=== PATIENT | female | born 1935 | race Caucasian/White ===

== ENCOUNTER 2017-01-27 04:21 | Inpatient (IN) | payer MEDICARE, BC ==
[2017-01-21 11:37] LABS: BASOPHILS 0.7 %; BASOPHILS ABSOLUTE 0.04 10/3/uL (0.0-0.16); EOSINOPHILS 5.7 %; EOSINOPHILS ABSOLUTE 0.31 10/3/uL (0.0-0.53); HEMATOCRIT 35.9 % (36.0-48.0); HEMOGLOBIN 11.4 g/dL (12.0-16.0); IMMATURE GRANULOCYTES 0.2 %; IMMATURE GRANULOCYTES ABSOLUTE 0.01 10/3/uL (0.0-0.11); LYMPHOCYTES 27.5 %; LYMPHOCYTES ABSOLUTE 1.49 10/3/uL (0.67-4.30); MEAN CORPUS HGB CONC 31.8 g/dL (32.0-36.0); MEAN CORPUSCULAR HEMOGLOB 27.9 pg (26.0-34.0); MEAN PLATELET VOLUME 11.1 fL (9.2-13.0); MONOCYTES ABSOLUTE 0.38 10/3/uL (0.21-1.20); NEUTROPHILS 58.9 %; NEUTROPHILS ABSOLUTE 3.18 10/3/uL (2.02-8.40); RBC DISTRIBUTION WIDTH 15.4 % (12.0-16.0); RED CELL COUNT 4.08 10/6/uL (4.0-5.6); WHITE BLOOD CELLS 5.4 10/3/uL (4.5-10.5)
[2017-01-21 11:43] LABS: INTERNATIONAL NORMAL RATI 1.3 UNITS (-); PROTIME (NOT ORD) 15.7 SEC (12.0-14.5)
[2017-01-21 11:44] LABS: PLATELET COUNT 314 10/3/uL (150-400)
[2017-01-21 11:45] LABS: MANUAL DIFF NO %
[2017-01-21 11:57] LABS: A/G RATIO 0.9 (0.7-1.9); ALBUMIN 3.4 G/DL (3.5-5.0); CHLORIDE, SERUM 109 MMOL/L (96-112); CO2 (CARBON DIOXIDE) 23 MMOL/L (24-34); CREATININE 1.23 MG/DL (0.55-1.02); GFR AFRICAN AMERICAN 47 ML/MIN (>=60); GFR NON AFRICAN AMERICAN 41 ML/MIN (>=60); GLOBULIN 3.7 G/DL (2.5-4.1); SGOT(AST) 30 U/L (5-40); SGPT(ALT) 42 U/L (5-65); SODIUM, SERUM 142 MMOL/L (135-148); TOTAL BILIRUBIN 0.6 MG/DL (0-1.2); TOTAL PROTEIN 7.1 G/DL (6.0-8.5)
[2017-01-21 11:58] LABS: ALKALINE PHOSPHATASE 72 U/L (45-117); BUN (BLOOD UREA NITROGEN) 20 MG/DL (6-23); GLUCOSE, SERUM 63 MG/DL (60-99); POTASSIUM, SERUM 5.1 MMOL/L (3.5-5.3)
[2017-01-21 11:59] LABS: ASCORBIC ACID (UR NOT ORDER) NEG (NEG); BILIRUBIN, URINE NEGATIVE (NEG); KETONE, URINE NEGATIVE (NEG); WBC (NOT ORDERED) (RFLEX) 7 (0-5)
[2017-01-21 11:59] LABS: B NATRIURETIC PEPTIDE (BNP) 4288.7 PG/ML (< 100.0)
[2017-01-21 12:00] LABS: LEUKOCYTE ESTERASE(NOT OR TRACE (NEG)
[2017-01-21 21:54] LABS: GLYCOHEMOGLOBIN (HbA1c) 6.2 % (4.7-6.1)
--- NOTE | ~2017-01-27 | CN ---
Consultation Report [facility] [address] [place]. [address] NAME: HIGINIO REYNOLDS : 34 STATUS : ADM IN PAT#: [id number] AGE: 81 ADM/REG DATE : 01/27/17 MR#: [id number] REPORT SERV DATE: 01/27/17 DICTATED BY: EMILY MITCHELL DATE: 01/27/17 REPORT STATUS : Draft TRANSCRIBED BY: MODL DATE: 01/27/17 NEPHROLOGY CONSULT DATE OF CONSULTATION: 01/27/2017 REASON FOR CONSULT: Chronic kidney disease, status post TAVR. HISTORY OF PRESENT ILLNESS: Ms Reynolds is an 81-year-old white female with a history of severe aortic stenosis. She has chronic kidney disease, but has not previously been seen by Nephrology. Her baseline creatinine appears to be 1.1 to 1.3 dating back to 07/2016. In 12/2016, she underwent cardiac catheterization, which showed nonobstructive coronary artery disease with PASP of 47 mmHg. She had an MRI on 01/01/2017, which showed a left frontal lobe area of ischemia and also underwent CT angiogram of the abdomen and chest, which showed calcification of her aorta. Echocardiogram last month showed EF 30% with diastolic dysfunction and an aortic valve area of 0.4 sq cm. She is postop day 0 TAVR and is extubated in the CVICU. Family is not in the room at the time of my interview and she is a very poor historian. PAST MEDICAL HISTORY: 1. Chronic kidney disease, baseline creatinine 1.1 to 1.3 since July 2016. 2. Severe aortic stenosis, postop day 0 TAVR, EF 30% diastolic dysfunction. 3. 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 4. Hypertension. 5. Hyperlipidemia. 6. History of right hip replacement. 7. Atherosclerotic cardiovascular disease with history of PCI. HOME MEDICATIONS: Albuterol nebulizers, amlodipine 10 mg daily, aspirin, Bumex 0.5 mg daily, Zyrtec 10 mg daily, Prozac 20 mg daily, Lortab p.r.n., Lantus 18 units at bedtime, lactulose p.r.n., Lopressor 12.5 mg b.i.d., multivitamin daily, dystrophin 5 mg b.i.d., Pravachol, potassium, vitamin D. FAMILY HISTORY: Cannot be obtained in the patient's current condition postop. SOCIAL HISTORY: Cannot be obtained in the patient's current condition postop. REVIEW OF SYSTEMS: Cannot be obtained in the patient's current condition postop. PHYSICAL EXAMINATION: VITAL SIGNS: Temperature 97.7, pulse 77, respirations 21, blood pressure 114/57, 97% O2 saturation on 14 L of high-flow nasal oxygen. Today 950 mL of intake with 1678 mL of urine output. GENERAL: She is an elderly white female, who is in no distress. She is lying flat in her Consultation Report [place] [id number] [facility] [place]. [address] NAME: HIGINIO REYNOLDS : 34 STATUS : ADM IN [facility]#: [id number] AGE: 81 ADM/REG DATE : 01/27/17 MR#: [id number] REPORT SERV DATE: 01/27/17 DICTATED BY: EMILY MITCHELL DATE: 01/27/17 REPORT STATUS : Draft TRANSCRIBED BY: PEE DATE: 01/27/17 bed. She is a very poor historian and is confused. HEENT: Sclerae without icterus. Conjunctivae not injected. Oropharynx is clear. NECK: JVD 10 cm. LUNGS: She has bilateral rhonchi worse on the right. Decreased breath sounds at the right base. No active dyspnea. She is mildly tachypneic despite high-flow oxygen. HEART: Regular rate and rhythm. 2 to 3/6 systolic murmur. No rub. ABDOMEN: Soft, nontender, nondistended. Bowel sounds present throughout. No rebound or guarding. EXTREMITIES: Showed 2+ pitting bilateral lower extremity edema to the knees. SKIN: Shows no rash or livedo reticularis. NEURO: Deferred. MUSCULOSKELETAL: Shows no active process. She has clear yellow urine in the Pittman catheter. There is a left subclavian trauma cath in place. LABORATORY DATA: Sodium 146, potassium 3.5, bicarb 21, BUN 12, creatinine 0.9, GFR 56 mL/minute. Magnesium 1.6, calcium 8, ionized calcium 4.57. Hemoglobin 10.5, hematocrit 33.2. INR 1.4. Urinalysis with trace protein and no blood. Her BNP was 4289 on 01/21/2017. ASSESSMENT AND PLAN: Ms Reynolds has chronic kidney disease, baseline creatinine 1.1 to 1.3. Ejection fraction 30% with coronary artery disease and previous stent. Postop day 0 TAVR for severe aortic stenosis and pulmonary hypertension. Chest x-ray shows volume overload with a right pleural effusion. Fortunately, her renal function at this time is stable and at baseline. She may have worsen renal function with diuresis, but in her current condition she does require IV Bumex. Replace potassium and magnesium. Discontinue the IV fluids, diurese and follow. We will continue to follow with you in the postoperative period. NC/MODL Emily Mitchell M.D. / [id number] CC: Karena Hargrove Murali
--- NOTE | ~2017-01-27 | OP ---
Record Of Operation [address] [place]. [address] NAME: HIGINIO REYNOLDS : 34 STATUS : ADM IN PAT#: [id number] AGE: 81 ADM/REG DATE : 01/27/17 MR#: [id number] REPORT SERV DATE: 01/28/17 DICTATED BY: JOSE CARLOS TALAMANTES DATE: 01/27/17 REPORT STATUS : Draft TRANSCRIBED BY: MODHoda DATE: 01/27/17 DATE OF PROCEDURE: 01/27/2017 TRANSCATHETER VALVE IMPLANTATION NOTE REFERRING IN FILE OPERATOR: Geoffrey Maxwell M.D. PROCEDURE PERFORMED: 1. Transcatheter aortic valve implantation with a 23-mm Barone Patricia S3 valve from a left transfemoral approach. 2. Temporary transvenous pacemaker placement right femoral vein to right ventricle. 3. Ascending aortogram. 4. Iliac angiogram. 5. ProGlide closure x2, left femoral artery. 6. ProGlide closure x1, right femoral artery. 7. Transesophageal echocardiography. SURGEONS: Jose Carlos Talamantes M.D.; Derek Dupree M.D.; García River M.D.; Dr. Mcleod. DIRECTOR OF DIETARY: Maura. TRANSESOPHAGEAL ECHOCARDIOGRAPHY: Cristopher Vidal M.D., Ph.D, F.A.C.C. SPECIMEN: Removed. CONTRAST: 85 mL. ESTIMATED BLOOD LOSS: 50 mL. FLUOROSCOPY TIME: 15.3 minutes MILLIGRAY: 1441. COMPLICATIONS: None. PREOPERATIVE DIAGNOSES: 1. Severe aortic stenosis with aortic valve area 0.4 sq. cm. and mild aortic insufficiency, symptomatic with functional class 4 asunt-yg-neaxmys congestive heart failure. 2. Cardiomyopathy with left ventricular ejection fraction of 30%. 3. Coronary artery disease, status post percutaneous intervention. 4. High surgical risk with STS score of 13% mortality and 39% morbidity and mortality. 5. Dementia. 6. Diabetes mellitus. 7. Hypertension. 8. Hyperlipidemia. Record Of [address] [place]. [address] NAME: HIGINIO REYNOLDS : 34 STATUS : ADM IN PAT#: [id number] AGE: 81 ADM/REG DATE : 01/27/17 MR#: [id number] REPORT SERV DATE: 03/16/17 DICTATED BY: JOSE CARLOS TALAMANTES DATE: 01/27/17 REPORT STATUS : Draft TRANSCRIBED BY: MODL DATE: 01/27/17 9. Remote tobacco use. 10.Chronic kidney disease, stage III. 11.Home oxygen. 12.Morbid obesity. POSTOPERATIVE DIAGNOSES: 1. Severe aortic stenosis with aortic valve area 0.4 square cm and mild aortic insufficiency, symptomatic with functional class 4 mruza-as-ajrwkkk congestive heart failure. 2. Cardiomyopathy with left ventricular ejection fraction of 30%. 3. Coronary artery disease, status post percutaneous intervention. 4. High surgical risk with STS score of 13% mortality and 39% morbidity and mortality. 5. Dementia. 6. Diabetes mellitus. 7. Hypertension. 8. Hyperlipidemia. 9. Remote tobacco use. 10.Chronic kidney disease, stage III. 11.Home oxygen. 12.Morbid obesity. 13.Mild aortic insufficiency postop perivalvular with calcification. DATA FOR THE VALVE REGISTRY: The time of valve deployment 1056 a.m. The total rapid pacing time is 72 seconds. The preprocedure mean gradient of 49, peak gradient of 60, cardiac output of 2.5 L/minute, aortic valve area 0.4 square cm. Postprocedure mean gradient of 7, peak gradient of 4, cardiac output of 3.7, aortic valve area of 1.9 square cm. AI index of 27. BACKGROUND: Ms Reynolds is a very pleasant, 81-year-old white woman with multiple medical problems, including severe aortic stenosis with aortic valve area of 0.4 square cm, mild aortic insufficiency. She was thought to be high surgical risk with STS score of 13% mortality and 39% morbidity and mortality. She was seen by Dr. Mcleod and Dr. River who agreed she was at high surgical risk. She also had additional risk factors not included in her STS score including dementia, pulmonary hypertension, home oxygen use, and morbid obesity. The valve team met and she was on transcatheter aortic valve implantation. The risks, benefits, and complications were discussed with the patient and her family at length in detail and they all wished to proceed. TECHNIQUE: After informed written consent was obtained from Ms Reynolds and her family, she was brought to the hybrid suite on the morning of 01/27/2017 in a fasting state. The time- out was performed and correct patient and operative plan were confirmed. Anesthesia was accomplished by the Anesthesia Service, which was general with intubation due to her preop condition. The patient was prepped and draped in usual sterile fashion. Local anesthesia was accomplished using 1% lidocaine. Using modified Seldinger technique and a micropuncture set, a 6-[place]izen [place] sheaths were placed in the left femoral artery, right femoral artery, and right femoral vein, all with excellent blood return. The sheaths were double flushed and left in place. Femoral angiography was performed using a microcatheter bilaterally, which Record Of Operation [place] [id number] [facility] [place]. [address] NAME: HIGINIO REYNOLDS : 34 STATUS : ADM IN PAT#: [id number] AGE: 81 ADM/REG DATE : 01/27/17 MR#: [id number] REPORT SERV DATE: 01/28/17 DICTATED BY: JOSE CARLOS TALAMANTES DATE: 01/27/17 REPORT STATUS : Draft TRANSCRIBED BY: PEE DATE: 01/27/17 demonstrated good sticks in the common femoral arteries, thought suitable for closure. Next, a 5-Citizen [place] balloon-tipped pacing catheter was advanced from the RFV to the RV under fluoroscopic guidance. Threshold was checked, which was less than 0.8 milliamps. This was then set aside. Next, using a 6-Citizen [place] pigtail catheter, ascending aortogram was performed and valve angles were obtained. Next, ProGlide sutures were placed in the left femoral artery at 10 o'clock and 2 o'clock in the usual fashion using a Preclose technique. The patient was heparinized to an ACT of greater than 250. Next, the sheath was exchanged over a Lunderquist wire for the Barone sheath, which was double flushed and left in place. Next, 6-Citizen [place] AL1 diagnostic catheter was used and using a straight guidewire, the aortic valve was crossed with relative ease. The catheter was then advanced to the LV position and using an exchange, J guidewire was exchanged for an apartum dual-lumen pigtail catheter. Simultaneous LV and aortic pressures were then obtained. Cardiac output was performed. The wire was exchanged for a preshaped extra stiff wire, which was placed in the left ventricle. The catheter was then withdrawn from the body. Next, a 23 mm Barone Patricia S3 valve was selected and brought to the table. Orientation was confirmed. The valve was then advanced over the wire to the descending aorta and the balloon was brought into the valve in the usual fashion. The valve was then brought around the arch and across the aortic valve and into position. This was carefully positioned using angiographic guidance. When all was in readiness, the sequence was commenced and respirations were held. Rapid pacing was performed. After several tries and repositioning of the pacer, pacing was able to cause a rapid fall in the blood pressure, and the balloon was inflated and the valve was deployed, and the balloon was deflated, rapid pacing was ceased and respirations were resumed. Followup angiography revealed mild aortic insufficiency. ROULA was performed, which demonstrated moderate perivalvular aortic insufficiency. Postdilatation was then performed using additional saline in the balloon, initially 2 mL and then a total of 3 mL. After the 3 mL inflation, there was only mild AI by transesophageal echocardiography. This was thought to be perivalvular. The mechanism appeared to be heavy calcification behind the stent struts. The valve was thought to be in good position both angiographically and by ROULA. It was not felt that an additional valve would improve the aortic insufficient. This was felt to be a limitation of the technology for this patient due to the heavy calcification. Therefore, the balloon was withdrawn from the body and the Pfeifer dual-lumen pigtail catheter was replaced. Simultaneous LV and aortic pressures were then obtained. Cardiac output was then performed. AI index was 27, which was felt to be acceptable. There was no significant gradient across the aortic valve. Pullback recording of pressure was obtained, which demonstrated nearly matching pressures. The catheter was then disengaged from body over a guidewire. Next, the Barone sheath was withdrawn from the body and the ProGlide sutures were tied with good hemostasis. Followup angiography revealed patency of the iliac artery with no evidence of dissection or distal embolization. There was a moderate stenosis at the ProGlide site of approximately 50%, but good BIJU grade 3 distal flow, this was left alone. Next, ProGlide closure of the right femoral artery was performed with a single ProGlide device with good hemostasis. There was no bleeding, and no hematoma. At the conclusion of the procedure, the patient was given protamine. The pacing catheter was left in place for Record Of Operation [place] [id number] [place]. [address] NAME: GAILHIGINIOSUSHANT FINE : 34 STATUS : ADM IN PAT#: [id number] AGE: 81 ADM/REG DATE : 01/27/17 MR#: [id number] REPORT SERV DATE: 01/28/17 DICTATED BY: JOSE CARLOS TALAMANTES DATE: 01/27/17 REPORT STATUS : Draft TRANSCRIBED BY: PEE DATE: 01/27/17 later removal in ICU. The patient tolerated the procedure well without apparent complication. She was then returned to the ICU in good condition. She had put out 1100 mL of urine at the conclusion of the procedure. RECOMMENDATIONS: 1. Aspirin and Plavix for at least six months and aspirin indefinitely. 2. Risk factor modification. 3. Echocardiographic followup. ALISA/PEE Jose Carlos Talamantes M.D. / [id number] CC: Karena Hargrove MD Robert Berglund, M.D.
--- NOTE | ~2017-01-27 | OP ---
Record Of Operation [address] [place]. [address] NAME: HIGINIO REYNOLDS : 34 STATUS : ADM IN PAT#: [id number] AGE: 81 ADM/REG DATE : 01/27/17 MR#: [id number] REPORT SERV DATE: 01/27/17 DICTATED BY: LAQUITA RIVER DATE: 01/27/17 REPORT STATUS : Draft TRANSCRIBED BY: MODL DATE: 01/27/17 DATE OF PROCEDURE: 01/27/2017 PREOPERATIVE DIAGNOSES: 1. Aortic valve stenosis with insufficiency. 2. Congestive heart failure, chronic and systolic (ejection fraction 30%). 3. Moderate mitral valve insufficiency. 4. Hypertension. 5. Hypercholesterolemia. 6. Obesity. 7. Chronic kidney disease, stage III. 8. Igw-zuyaptb-jrjmnlvbl type 2 diabetes mellitus. 9. History of dementia. POSTOPERATIVE DIAGNOSES: 1. Aortic valve stenosis with insufficiency. 2. Congestive heart failure, chronic and systolic (ejection fraction 30%). 3. Moderate mitral valve insufficiency. 4. Hypertension. 5. Hypercholesterolemia. 6. Obesity. 7. Chronic kidney disease, stage III. 8. Tam-efqytky-fpzfzelgx type 2 diabetes mellitus. 9. History of dementia. PROCEDURE PERFORMED: 1. Left femoral transarterial aortic valve replacement using a 23 mm S3 prosthesis. 2. Temporary transvenous pacemaker placement via right femoral vein. 3. Ascending aortography. 4. Aortoiliofemoral angiography of the left. 5. ProGlide closure of left femoral artery x2 and ProGlide closure of the right femoral artery x1. 6. Transesophageal echocardiography. SURGEON: 1. Laquita River M.D. 2. Arturo Gamble M.D. 3. Derek Dupree M.D. 4. Lizandro Mcleod MD. ECH[employer]ARDIOGRAPHIC [employer]IAN: Cristopher Vidal M.D., Ph.D, F.A.C.C. ANESTHESIA: General with Dr Cooper. CARDIOLOGISTS: Geoffrey Maxwell M.D. Record Of Operation [address] [place]. [address] NAME: HIGINIO REYNOLDS : 34 STATUS : ADM IN PAT#: [id number] AGE: 81 ADM/REG DATE : 01/27/17 MR#: [id number] REPORT SERV DATE: 01/27/17 DICTATED BY: LAQUITA RIVER DATE: 01/27/17 REPORT STATUS : Draft TRANSCRIBED BY: PEE DATE: 01/27/17 PRIMARY CARE PHYSICIAN: Dr. Izzy Zamora. INDICATIONS: This is an obese 81-year-old female, with chronic kidney disease, and known congestive heart failure, with an ejection fraction of 30%. She has a history of aortic valve stenosis and has had evaluation for this. She has significant dyspnea with exertion and orthopnea, but no history of syncope. There was no history of stroke, but there was a history of mild dementia. Echocardiography demonstrated reduction in the EF with EF of 30% with LVH. There was severe aortic valve stenosis with a peak velocity across the valve of 4 m/sec and mean gradient across the valve of 37 mmHg. The valve area was estimated at 0.47 cm2. There was mild aortic insufficiency and moderate mitral insufficiency. Cardiac catheterization demonstrated nonobstructive coronary artery disease. Pulmonary artery pressures were mildly elevated. She was referred for possible surgical evaluation and I felt that the patient had elevated risk for operative intervention with a mortality in excess of 13%. I discussed this finding with the patient and her family, and they wished to be considered for possible transcatheter valve replacement. The patient underwent evaluation was discussed at TAVR conference and felt the patient was a reasonable candidate for possible TAVR. FINDINGS AT OPERATION: 1. Total rapid pacing time of 72 minutes. 2. Actual time of TAVR deployment was 1056 hours. 3. Cardiac output pre-deployment was 2.5, post deployment was 3.7 L/minute. 4. Valve area pre-deployment was 0.38 cm2, post deployment was 1.9 cm2. 5. Pre-implant aortic pressures: Systolic 124, diastolic 53, and mean 77 mmHg. 6. Postimplant aortic pressures: Systolic 145, diastolic 51, and mean 76 mmHg. 7. Pre-implant AV gradient of 49 and peak of 60 mmHg. 8. Postimplant AV gradient mean 7, and peak 4 mmHg. 9. Total contrast used was 85 mL. Fluoro time was 15.3 minutes. Estimated blood loss was 50 mL. Total mGy used was 1441. AI index was 20. 10.Milligray used. 11.Aortic index was 27. PATHOLOGIC SPECIMEN: None. DESCRIPTION OF PROCEDURE: The patient was brought to the operating suite. In preop, she had a Pittman catheter inserted, and was given diuretic because of volume overload. In the operating room, she was intubated and the airway was secured with an endotracheal tube. Lines were secured by Anesthesia. Then, the patient's abdomen, groin, and legs were prepped with Hibiclens and ChloraPrep, and draped with Ioban, and sterile sheets. The left femoral artery was pre-selected as site of access for TAVR. Micro needle was placed in the left femoral artery, and guidewire and a 6-Citizen Of [place] introducer were placed after angiography confirming placement. On the right groin, the right femoral artery was cannulated with a micro needle, and then the wire, and eventually a 6-Citizen [place] introducer sheath advanced into the right femoral artery after confirming position of micro catheter with the angiography. The right femoral vein was accessed with a 6-Citizen [place] catheter. Then, under fluoroscopic guidance, the temporary transvenous pacemaker was advanced up the right femoral venous sheath into position in the right ventricle, and outputs if captured, were confirmed. Record Of Operation [facility] [address] [place]. [address] NAME: HIGINIO REYNOLDS : 34 STATUS : ADM IN PAT#: [id number] AGE: 81 ADM/REG DATE : 01/27/17 MR#: [id number] REPORT SERV DATE: 01/27/17 DICTATED BY: LAQUITA RIVER DATE: 01/27/17 REPORT STATUS : Draft TRANSCRIBED BY: MODL DATE: 01/27/17 A pigtail catheter was then advanced up the right 6-Citizen [place] introducer sheath into the ascending aorta and at the annulus of the coronary cusp. Contrast aortography was then performed in angles for deployment of the valve selected. Next, two ProGlide were placed in the left femoral artery and secured. Then exchange catheter advanced into the ascending aorta. The introducer sheath for the valve was placed over this guidewire and advanced into the descending thoracic aorta. Heparin was administered by Anesthesia. Then, the valve was crossed using AL1 catheter and guidewire. Then a [place] catheter was placed over the guidewire and positioned in the ventricle across the valve. Simultaneous pressure measurements were obtained. Then, the extra stiff Amplatzer wire was advanced into the left ventricle through the [place] catheter which was then removed. The transcatheter balloon assembly was then placed into the sheath and advanced into the descending thoracic aorta. The valve was then loaded on the pusher. We then advanced the valve around the aortic arch into the ascending aorta and across the valve under fluoroscopic guidance. The balloon was then placed across the valve and the pusher backed up to the appropriate position. Next, rapid pacing was begun and confirmatory aortography was performed of the position of the valve. The valve was then deployed under rapid ventricular pacing. Once this was completed, rapid ventricular pacing was discontinued. Then, the valve assembly was brought back across the deployed valve into the descending thoracic aorta. Contrast aortography at this point demonstrated a possible small leak and ROULA confirmed the presence of a mild-to- moderately leak. Then, the valve assembly and balloon were advanced back across the valve and it was decided to balloon valvuloplasty of the new prosthetic valve. This was actually done with a total of two and then one additional mL of contrast. Both balloon dilatation was performed with rapid ventricular pacing. Following the last balloon dilatation of the prosthetic valve, the valve assembly was then brought back into the descending thoracic aorta. Contrast aortography demonstrated very mild aortic insufficiency and ROULA confirmed the presence of a very mild perivalvular leak. This was then discussed amongst implanting physicians and it was concluded that additional ballooning would not be done and then an another valve implantation at this time may jeopardize the function of the anterior leaflet of the mitral valve as this calcium was just adjacent to the anterior leaflet. At this point, the valve assembly was then taken out of the sheath. We then removed the sheath and the two ProGlide devices placed earlier were deployed into the left femoral artery. Good hemostasis was obtained. The pigtail catheter in the right groin was then brought back down to the bifurcation of the aorta. Here, a selective aortography with iliofemoral runoff on the left side was performed, and this demonstrated a small area of stenosis at the ProGlide closure site. This was estimated to be less than 50% with pedal pulses present. The pigtail catheter was removed over a transfer wire and then a ProGlide was inserted in the right femoral artery over the wire. The ProGlide was deployed and the wire removed from the right groin and the ProGlide secured and divided. There was good hemostasis in both groins. Then, the [place] was removed under fluoroscopic guidance to confirm that the pacemaker was left in place. The patient tolerated the procedure well. Record Of Operation [place] [id number] [place]. [address] NAME: HIGINIO REYNOLDS : 34 STATUS : ADM IN [facility]#: [id number] AGE: 81 ADM/REG DATE : 01/27/17 MR#: [id number] REPORT SERV DATE: 01/27/17 DICTATED BY: LAQUITA RIVER DATE: 01/27/17 REPORT STATUS : Draft TRANSCRIBED BY: PEE DATE: 01/27/17 DISPOSITION: The patient was left intubated, sedated, and taken to the intensive care unit in a stable intubated condition, with pedal pulses present by Doppler, and in a normal sinus rhythm with small bundle branch block. MIRLANDE/PEE Laquita River M.D. / [id number] CC: Karena Hargrove MD Robert Berglund, M.D. Asha Mohan, M.D.
[~2017-01-27 04:21] MED LIST: ACET500CAP PO; ALBUTEROL0.083 % INH; ASA5GR PO; ASAB PO; AT25 PO; BEN25 PO; BUM5 PO; CENTRUM PO; CONSTULOSE PO; DITRO5 PO; ENULOSE PO; GLUCPH PO; KLONO5 PO; KLOR-CON M2020 MEQ PO; LANTUS SC; LANTUSCART SC; LIPITOR10 PO; LOP25 PO; LORT7 PO; MAX25 PO; NORCO1 TA1 PO; NORV10 PO; NOVOLOG SC; P1 PO; PLAVIX PO; PRAVACHOL40 MG PO; PROZAC PO; REFRES1 OPH; STARLIX120 PO; VESICARE10 MG PO; VITAMIN D PO; ZYRTEC ALLGY10 MG PO; [UNRECOGNIZED DRUG - OTHER] TOP; [UNRECOGNIZED DRUG - OTHER] TOP
[2017-01-27 12:16] LABS: BE (BASE EXCESS) -5.9 MEQ/L (0 +/- 2.5); CARBOXYHEMOGLOBIN 0.3 % (0-3); HCO3 (ACTUAL BICARBONATE) 19.3 MEQ/L (23-27); HEMOBLOGIN CONTENT 11.7 G/DL (12-16); INSTRUMENT SERIAL # 11843; METHEMOGLOBIN 0.5 % (0-3); MODE SIMV; O2 CONTENT 16.5 VOL% (18-24); OPERATOR ID 13624; PCO2 (CO2 TENSION) 37 MMHG (35-45); PO2 (O2 TENSION) 192 MMHG (79-93); PRESSURE SUPPORT 10 cm.H2O; SAMPLE Arterial; TIDAL VOLUME 550 ML; pH 7.34 (7.37-7.43)
[2017-01-27 12:52] LABS: HEMATOCRIT 33.2 % (36.0-48.0); HEMOGLOBIN 10.5 g/dL (12.0-16.0); PLATELET COUNT 235 10/3/uL (150-400)
[2017-01-27 13:00] LABS: INTERNATIONAL NORMAL RATI 1.4 UNITS (-); PARTIAL THROMBO TIME 36.5 SEC (22.5-37.2); PROTIME (NOT ORD) 17.1 SEC (12.0-14.5)
[2017-01-27 13:05] LABS: BUN (BLOOD UREA NITROGEN) 12 MG/DL (6-23); CHLORIDE, SERUM 112 MMOL/L (96-112); CO2 (CARBON DIOXIDE) 21 MMOL/L (24-34); CREATININE 0.95 MG/DL (0.55-1.02); GFR AFRICAN AMERICAN 65 ML/MIN (>=60); GFR NON AFRICAN AMERICAN 56 ML/MIN (>=60); GLUCOSE, SERUM 145 MG/DL (60-99); POTASSIUM, SERUM 3.5 MMOL/L (3.5-5.3); SODIUM, SERUM 146 MMOL/L (135-148)
[2017-01-27 17:51] LABS: HEMATOCRIT 31.2 % (36.0-48.0); HEMOGLOBIN 10.1 g/dL (12.0-16.0)
[2017-01-27 17:57] LABS: BUN (BLOOD UREA NITROGEN) 11 MG/DL (6-23); CALCIUM, SERUM 8.1 MG/DL (8.5-10.4); CHLORIDE, SERUM 114 MMOL/L (96-112); CO2 (CARBON DIOXIDE) 23 MMOL/L (24-34); CREATININE 0.89 MG/DL (0.55-1.02); GFR AFRICAN AMERICAN 70 ML/MIN (>=60); GFR NON AFRICAN AMERICAN 60 ML/MIN (>=60); GLUCOSE, SERUM 102 MG/DL (60-99); POTASSIUM, SERUM 3.3 MMOL/L (3.5-5.3); SODIUM, SERUM 148 MMOL/L (135-148)
[2017-01-28 00:09] LABS: HEMATOCRIT 30.6 % (36.0-48.0); HEMOGLOBIN 10.1 g/dL (12.0-16.0)
[2017-01-28 00:26] LABS: BUN (BLOOD UREA NITROGEN) 9 MG/DL (6-23); CALCIUM, SERUM 7.7 MG/DL (8.5-10.4); CHLORIDE, SERUM 113 MMOL/L (96-112); CO2 (CARBON DIOXIDE) 23 MMOL/L (24-34); CREATININE 0.86 MG/DL (0.55-1.02); GFR AFRICAN AMERICAN 73 ML/MIN (>=60); GFR NON AFRICAN AMERICAN 63 ML/MIN (>=60); GLUCOSE, SERUM 84 MG/DL (60-99); POTASSIUM, SERUM 3.8 MMOL/L (3.5-5.3); SODIUM, SERUM 147 MMOL/L (135-148)
[2017-01-28 04:49] LABS: BASOPHILS 0.3 %; BASOPHILS ABSOLUTE 0.02 10/3/uL (0.0-0.16); EOSINOPHILS 5.4 %; EOSINOPHILS ABSOLUTE 0.31 10/3/uL (0.0-0.53); HEMATOCRIT 31.8 % (36.0-48.0); HEMOGLOBIN 10.2 g/dL (12.0-16.0); IMMATURE GRANULOCYTES 0.3 %; IMMATURE GRANULOCYTES ABSOLUTE 0.02 10/3/uL (0.0-0.11); LYMPHOCYTES 20.5 %; LYMPHOCYTES ABSOLUTE 1.18 10/3/uL (0.67-4.30); MEAN CORPUS HGB CONC 32.1 g/dL (32.0-36.0); MEAN CORPUSCULAR HEMOGLOB 27.9 pg (26.0-34.0); MEAN CORPUSCULAR VOLUME 86.9 fL (80-100); MEAN PLATELET VOLUME 10.4 fL (9.2-13.0); MONOCYTES 10.4 %; NEUTROPHILS 63.1 %; NEUTROPHILS ABSOLUTE 3.63 10/3/uL (2.02-8.40); PLATELET COUNT 208 10/3/uL (150-400); RBC DISTRIBUTION WIDTH 15.2 % (12.0-16.0); RED CELL COUNT 3.66 10/6/uL (4.0-5.6); WHITE BLOOD CELLS 5.8 10/3/uL (4.5-10.5)
[2017-01-28 04:53] LABS: MANUAL DIFF NO %
[2017-01-28 05:01] LABS: BUN (BLOOD UREA NITROGEN) 8 MG/DL (6-23); CALCIUM, SERUM 8.2 MG/DL (8.5-10.4); CHLORIDE, SERUM 113 MMOL/L (96-112); CO2 (CARBON DIOXIDE) 25 MMOL/L (24-34); CREATININE 0.92 MG/DL (0.55-1.02); GFR AFRICAN AMERICAN 67 ML/MIN (>=60); GFR NON AFRICAN AMERICAN 58 ML/MIN (>=60); SODIUM, SERUM 146 MMOL/L (135-148)
[2017-01-28 05:03] LABS: GLUCOSE, SERUM 106 MG/DL (60-99)
[2017-01-28 16:57] LABS: HEMOGLOBIN 11.8 g/dL (12.0-16.0)
[2017-01-28 16:58] LABS: HEMATOCRIT 36.4 % (36.0-48.0)
[2017-01-28 17:03] LABS: POTASSIUM, SERUM 3.6 MMOL/L (3.5-5.3)
[2017-01-29 06:16] LABS: BASOPHILS 0.6 %; BASOPHILS ABSOLUTE 0.04 10/3/uL (0.0-0.16); EOSINOPHILS 6.1 %; EOSINOPHILS ABSOLUTE 0.42 10/3/uL (0.0-0.53); HEMATOCRIT 34.6 % (36.0-48.0); HEMOGLOBIN 10.9 g/dL (12.0-16.0); IMMATURE GRANULOCYTES 0.1 %; IMMATURE GRANULOCYTES ABSOLUTE 0.01 10/3/uL (0.0-0.11); LYMPHOCYTES 15.6 %; LYMPHOCYTES ABSOLUTE 1.07 10/3/uL (0.67-4.30); MEAN CORPUS HGB CONC 31.5 g/dL (32.0-36.0); MEAN CORPUSCULAR HEMOGLOB 27.5 pg (26.0-34.0); MEAN CORPUSCULAR VOLUME 87.4 fL (80-100); MEAN PLATELET VOLUME 10.5 fL (9.2-13.0); MONOCYTES 10.9 %; MONOCYTES ABSOLUTE 0.75 10/3/uL (0.21-1.20); NEUTROPHILS 66.7 %; NEUTROPHILS ABSOLUTE 4.59 10/3/uL (2.02-8.40); PLATELET COUNT 212 10/3/uL (150-400); RBC DISTRIBUTION WIDTH 15.1 % (12.0-16.0); RED CELL COUNT 3.96 10/6/uL (4.0-5.6); WHITE BLOOD CELLS 6.9 10/3/uL (4.5-10.5)
[2017-01-29 06:22] LABS: MANUAL DIFF NO %
[2017-01-29 06:34] LABS: ALBUMIN 3.1 G/DL (3.5-5.0); BUN (BLOOD UREA NITROGEN) 8 MG/DL (6-23); CHLORIDE, SERUM 107 MMOL/L (96-112); CO2 (CARBON DIOXIDE) 27 MMOL/L (24-34); CREATININE 0.97 MG/DL (0.55-1.02); GFR AFRICAN AMERICAN 63 ML/MIN (>=60); GFR NON AFRICAN AMERICAN 54 ML/MIN (>=60); GLUCOSE, SERUM 116 MG/DL (60-99); PHOSPHORUS, SERUM 2.4 MG/DL (2.5-4.5); POTASSIUM, SERUM 3.9 MMOL/L (3.5-5.3); SODIUM, SERUM 144 MMOL/L (135-148)
[2017-01-29] MEDS ORDERED: PLAVIX PO (16:32)
== END 2017-01-29 17:58 | disposition home or self-care (01) | DRG 266 ==
LOC: SDC/OF 04:21 → CVICU 11:22 → 5NO 01-28 13:32
PROVIDERS: Thoracic Surgery (Cardiothoracic Vascular Surgery)
PROC: 02RF38Z Replacement of Aortic Valve with Zooplastic Tissue, Percutaneous Approach (ICD-10-PCS; principal; 2017-01-27 10:00)
PROC: B246YZZ Ultrasonography of Right and Left Heart using Other Contrast (ICD-10-PCS; 2017-01-27 10:00)
PROC: 0W993ZZ Drainage of Right Pleural Cavity, Percutaneous Approach (ICD-10-PCS; 2017-01-29)
DX: I35.2 Nonrheumatic aortic (valve) stenosis with insufficiency (principal); I50.43 Acute on chronic combined systolic (congestive) and diastolic (congestive) heart failure; J90 Pleural effusion, not elsewhere classified; I42.9 Cardiomyopathy, unspecified; N11.9 Chronic tubulo-interstitial nephritis, unspecified; I13.0 Hypertensive heart and chronic kidney disease with heart failure and stage 1 through stage 4 chronic kidney disease, or unspecified chronic kidney disease; F03.90 Unspecified dementia, unspecified severity, without behavioral disturbance, psychotic disturbance, mood disturbance, and anxiety; I27.2 Other secondary pulmonary hypertension; E11.22 Type 2 diabetes mellitus with diabetic chronic kidney disease; N18.3 Chronic kidney disease, stage 3 (moderate); I34.0 Nonrheumatic mitral (valve) insufficiency; E78.00 Pure hypercholesterolemia, unspecified; Z00.6 Encounter for examination for normal comparison and control in clinical research program; I25.10 Atherosclerotic heart disease of native coronary artery without angina pectoris; E78.5 Hyperlipidemia, unspecified; E66.9 Obesity, unspecified; Z68.27 Body mass index [BMI] 27.0-27.9, adult; Z96.641 Presence of right artificial hip joint; Z95.5 Presence of coronary angioplasty implant and graft
CPT/HCPCS: 31720; 32555; 36415; 71010; 71020; 80048; 80053; 80069; 81001; 82330; 82803; 82805; 82947; 82962; 83036; 83735; 83880; 84132; 84295; 85014; 85018; 85025; 85049; 85347; 85610; 85730; 86850; 86900; 86901; 87641; 93005; 93312; 93320; 93325; 94002; 94660; 94770; A9270-GY; C1751; C1769; C1894; C8929; G0463; J0330; J0690; J1580; J2250; J2370; J3010; J3370; P9045; Q9957